=== PATIENT | female | born 1955 | race Two or more races ===

== ENCOUNTER 2018-02-23 10:57 | Inpatient (IN) | payer OTHER ==
[2018-02-23] MEDS: HYDROmorphONE 1 MG/ML SYG IV (12:49)
[2018-02-23] MEDS: ONDANSETRON 4 MG INJ IV (12:49)
[2018-02-23] MEDS: SOD CHLORIDE 0.9% 1,000 ML IV (12:49)
[2018-02-23 12:58] LABS: ADD MAN DIFF? NO
[2018-02-23 13:01] LABS: BASOPHIL # 0.1 10^3/ul (0.0-0.1); BASOPHILS % 0.7 % (0.0-2.0); EOSINOPHILS # 0.7 10^3/ul (0.0-0.5); EOSINOPHILS % 7.7 % (0.0-7.0); HEMATOCRIT 40.1 % (37.0-47.0); HEMOGLOBIN 12.3 g/dl (12.0-16.0); LYMPHOCYTES # 2.3 10^3/ul (0.8-2.9); LYMPHOCYTES % 25.4 % (15.0-51.0); MEAN CORPUSCULAR HEMOGLOBIN 24.9 pg (29.0-33.0); MEAN CORPUSCULAR HGB CONC 30.7 g/dl (32.0-37.0); MEAN CORPUSCULAR VOLUME 81.3 fl (82.0-101.0); MEAN PLATELET VOLUME 9.5 fl (7.4-10.4); MONOCYTE # 0.7 10^3/ul (0.3-0.9); MONOCYTES % 7.9 % (0.0-11.0); NEUTROPHIL # 5.2 10^3/ul (1.6-7.5); PLATELET COUNT 384 10^3/UL (140-415); RED BLOOD COUNT 4.93 10^6/ul (4.20-5.40); RED CELL DISTRIBUTION WIDTH 13.9 % (11.5-14.5)
[2018-02-23 13:01] LABS: WHITE BLOOD COUNT 8.9 10^3/ul (4.8-10.8)
[2018-02-23 13:41] LABS: INR 0.97
[2018-02-23 13:42] LABS: PARTIAL THROMBOPLASTIN TIME 35.1 Sec (23.0-35.0)
[2018-02-23 13:44] LABS: ALANINE AMINOTRANSFERASE 14 IU/L (13-69); ALBUMIN 3.4 g/dl (3.3-4.9); ALBUMIN/GLOBULIN RATIO 0.89; ALKALINE PHOSPHATASE 94 IU/L (42-121); AMYLASE 52 U/L (11-123); ANION GAP 5 (5-13); ASPARTATE AMINO TRANSFERASE 29 IU/L (15-46); BILIRUBIN,INDIRECT 0.4 mg/dl (0-1.1); BILIRUBIN,TOTAL 0.4 mg/dl (0.2-1.3); BLOOD UREA NITROGEN 8 mg/dl (7-20); CALCIUM 9.1 mg/dl (8.4-10.2); CARBON DIOXIDE 29 mmol/L (21-31); CHLORIDE 103 mmol/L (97-110); CREATININE 0.49 mg/dl (0.44-1.00); Estimated GFR > 60 mL/min (>60); GLUCOSE 122 mg/dl (70-220); LIPASE 34 U/L (23-300); POTASSIUM 4.8 mmol/L (3.5-5.1); SODIUM 137 mmol/L (135-144); TOTAL PROTEIN 7.2 g/dl (6.1-8.1)
[2018-02-23 13:55] LABS: TROPONIN-I < 0.012 ng/ml (0.000-0.120)
[2018-02-23] MEDS ORDERED: ACETAMINOPHEN 325 MG TAB PO (15:30)
[2018-02-23] MEDS ORDERED: ONDANSETRON 4 MG INJ IV (15:30)
[2018-02-23] MEDS ORDERED: MAGNESIUM HYDROXIDE 30ML CUP PO (18:00)
[2018-02-23] MEDS ORDERED: NACL 0.9% 3 ML SYG IV (18:00)
[2018-02-23] MEDS ORDERED: BISACODYL (EC) 5 MG TAB PO (18:00)
[2018-02-23] MEDS ORDERED: DOCUSATE SODIUM 100 MG CAP PO (18:00)
[2018-02-23] MEDS: INSULIN ASPART [NOVOLOG] 3 ML PEN SC ×2 (18:00→20:47)
[2018-02-23] MEDS ORDERED: ACETAMINOPHEN 650 MG SUPP PR (18:00)
[2018-02-23] MEDS ORDERED: GLUCOSE GEL 15 GRAM TUBE PO ×2 (18:30)
[2018-02-23] MEDS ORDERED: GLUCOSE GEL 15 GRAM TUBE BUCCAL (18:30)
[2018-02-23] MEDS ORDERED: GLUCAGON 1 MG INJ IM (18:30)
[2018-02-23] MEDS ORDERED: DEXTROSE 50% 50 ML SYRINGE IV ×2 (18:30)
[2018-02-23] MEDS: HYDROCODONE/APAP (5/325) TAB PO (19:43)
[2018-02-23] MEDS: ZOLPIDEM 5 MG TAB PO (23:25)
[2018-02-23] MEDS: ACETAMINOPHEN 325 MG TAB PO (23:25)
[2018-02-24 00:12] LABS: CARCINOEMBRYONIC ANTIGEN 0.4 ng/ml (0.0-5.0)
[2018-02-24 00:12] LABS: CANCER ANTIGEN 125 < 5.5 U/ml (0.0-35.0)
[2018-02-24] MEDS: ACCU-CHEK XX (02:00)
[2018-02-24 02:02] LABS: CANCER ANTIGEN 19-9 < 1.4 U/ml (0.0-37.0)
[2018-02-24] MEDS: PANTOPRAZOLE 40 MG INJ IV (06:20)
[2018-02-24] MEDS: HYDROCODONE/APAP (5/325) TAB PO ×4 (06:26→21:43)
[2018-02-24] MEDS: INSULIN ASPART [NOVOLOG] 3 ML PEN SC ×4 (08:00→20:51)
[2018-02-24 08:06] LABS: HEMOGLOBIN A1C 7.1 % (0-5.9)
[2018-02-25] MEDS: ACCU-CHEK XX (01:38)
[2018-02-25] MEDS: PANTOPRAZOLE 40 MG INJ IV (05:54)
[2018-02-25] MEDS: HYDROCODONE/APAP (5/325) TAB PO ×4 (05:57→19:13)
[2018-02-25] MEDS: INSULIN ASPART [NOVOLOG] 3 ML PEN SC ×5 (08:06→20:28)
[2018-02-26] MEDS: ACCU-CHEK XX (01:27)
[2018-02-26] MEDS: PANTOPRAZOLE 40 MG INJ IV (05:51)
[2018-02-26] MEDS: HYDROCODONE/APAP (5/325) TAB PO (05:53)
[2018-02-26 07:00] LABS: ADD MAN DIFF? NO
[2018-02-26 07:06] LABS: BASOPHIL # 0.1 10^3/ul (0.0-0.1); BASOPHILS % 0.7 % (0.0-2.0); EOSINOPHILS # 0.5 10^3/ul (0.0-0.5); EOSINOPHILS % 6.3 % (0.0-7.0); HEMATOCRIT 36.4 % (37.0-47.0); HEMOGLOBIN 11.4 g/dl (12.0-16.0); LYMPHOCYTES # 1.8 10^3/ul (0.8-2.9); MEAN CORPUSCULAR HEMOGLOBIN 24.9 pg (29.0-33.0); MEAN CORPUSCULAR HGB CONC 31.3 g/dl (32.0-37.0); MEAN CORPUSCULAR VOLUME 79.5 fl (82.0-101.0); MONOCYTE # 0.6 10^3/ul (0.3-0.9); MONOCYTES % 7.8 % (0.0-11.0); NEUTROPHIL # 4.7 10^3/ul (1.6-7.5); NEUTROPHILS % 61.9 % (39.0-77.0); PLATELET COUNT 348 10^3/UL (140-415); RED BLOOD COUNT 4.58 10^6/ul (4.20-5.40); RED CELL DISTRIBUTION WIDTH 14.1 % (11.5-14.5)
[2018-02-26 07:06] LABS: WHITE BLOOD COUNT 7.7 10^3/ul (4.8-10.8)
[2018-02-26 07:25] LABS: INR 1.01; PROTIME 13.4 Sec (11.9-14.9)
[2018-02-26 07:28] LABS: ALANINE AMINOTRANSFERASE < 6 IU/L (13-69); ALBUMIN 3.5 g/dl (3.3-4.9); ALBUMIN/GLOBULIN RATIO 1.02; ALKALINE PHOSPHATASE 123 IU/L (42-121); ANION GAP 9 (5-13); ASPARTATE AMINO TRANSFERASE 18 IU/L (15-46); BILIRUBIN,INDIRECT 0.4 mg/dl (0-1.1); BILIRUBIN,TOTAL 0.4 mg/dl (0.2-1.3); BLOOD UREA NITROGEN 10 mg/dl (7-20); CALCIUM 9.2 mg/dl (8.4-10.2); CARBON DIOXIDE 31 mmol/L (21-31); CHLORIDE 98 mmol/L (97-110); Estimated GFR > 60 mL/min (>60); GLUCOSE 187 mg/dl (70-220); POTASSIUM 4.4 mmol/L (3.5-5.1); SODIUM 138 mmol/L (135-144); TOTAL PROTEIN 6.9 g/dl (6.1-8.1)
[2018-02-26] MEDS: INSULIN ASPART [NOVOLOG] 3 ML PEN SC ×4 (07:45→20:40)
[2018-02-26] MEDS: LACTATED RINGER'S 1,000 ML IV (11:45)
[2018-02-26] MEDS: morphine 2 MG INJ IV ×2 (12:03→21:08)
[2018-02-26] MEDS ORDERED: LIDOCAINE 1% (MPF) 5 ML VIAL (14:48)
[2018-02-26] MEDS ORDERED: FENTAnyl 50 MCG/ML VIAL (15:54)
[2018-02-27] MEDS: ACCU-CHEK XX (02:00)
[2018-02-27] MEDS: LACTATED RINGER'S 1,000 ML IV (04:10)
[2018-02-27] MEDS: PANTOPRAZOLE 40 MG INJ IV (06:02)
[2018-02-27 07:32] LABS: ADD MAN DIFF? NO
[2018-02-27 07:38] LABS: BASOPHIL # 0.1 10^3/ul (0.0-0.1); BASOPHILS % 0.9 % (0.0-2.0); EOSINOPHILS # 0.4 10^3/ul (0.0-0.5); EOSINOPHILS % 6.3 % (0.0-7.0); HEMATOCRIT 36.1 % (37.0-47.0); HEMOGLOBIN 11.3 g/dl (12.0-16.0); LYMPHOCYTES # 1.4 10^3/ul (0.8-2.9); LYMPHOCYTES % 20.8 % (15.0-51.0); MEAN CORPUSCULAR HEMOGLOBIN 24.9 pg (29.0-33.0); MEAN CORPUSCULAR HGB CONC 31.3 g/dl (32.0-37.0); MEAN CORPUSCULAR VOLUME 79.7 fl (82.0-101.0); MEAN PLATELET VOLUME 9.6 fl (7.4-10.4); MONOCYTE # 0.5 10^3/ul (0.3-0.9); MONOCYTES % 6.6 % (0.0-11.0); NEUTROPHIL # 4.4 10^3/ul (1.6-7.5); NEUTROPHILS % 64.8 % (39.0-77.0); PLATELET COUNT 368 10^3/UL (140-415); RED BLOOD COUNT 4.53 10^6/ul (4.20-5.40); RED CELL DISTRIBUTION WIDTH 14.1 % (11.5-14.5)
[2018-02-27 07:38] LABS: WHITE BLOOD COUNT 6.8 10^3/ul (4.8-10.8)
[2018-02-27] MEDS: INSULIN ASPART [NOVOLOG] 3 ML PEN SC ×4 (09:00→20:22)
[2018-02-27] MEDS: HYDROmorphONE 1 MG/ML SYG IV (17:45)
[2018-02-28] MEDS: ACCU-CHEK XX (01:16)
[2018-02-28] MEDS: PANTOPRAZOLE 40 MG INJ IV (05:37)
[2018-02-28] MEDS: HYDROmorphONE 1 MG/ML SYG IV ×2 (08:03→12:51)
[2018-02-28] MEDS: INSULIN ASPART [NOVOLOG] 3 ML PEN SC ×4 (08:05→20:29)
[2018-02-28] MEDS: SOD CHLORIDE 0.9% 100 ML (09:20)
[2018-02-28] MEDS: IODIXANOL LOCM 100 ML BTL (09:20)
[2018-02-28] MEDS: ONDANSETRON 4 MG INJ IV (09:40)
[2018-02-28] MEDS: HYDROCODONE/APAP (5/325) TAB PO (10:49)
[2018-02-28] MEDS ORDERED: HYDROCODONE/APAP (10/325) TAB PO (14:30)
[2018-02-28] MEDS ORDERED: traMADol 50 MG TAB PO (14:30)
[2018-02-28] MEDS: morphine (ER) 15 MG TAB PO ×2 (16:54→20:20)
[2018-03-01] MEDS: ACCU-CHEK XX (02:53)
[2018-03-01] MEDS: PANTOPRAZOLE 40 MG INJ IV (05:44)
[2018-03-01 07:19] LABS: ADD MAN DIFF? NO
[2018-03-01 07:25] LABS: WHITE BLOOD COUNT 6.9 10^3/ul (4.8-10.8)
[2018-03-01 07:25] LABS: BASOPHIL # 0.1 10^3/ul (0.0-0.1); BASOPHILS % 0.7 % (0.0-2.0); EOSINOPHILS # 0.7 10^3/ul (0.0-0.5); EOSINOPHILS % 10.5 % (0.0-7.0); HEMATOCRIT 36.2 % (37.0-47.0); HEMOGLOBIN 11.2 g/dl (12.0-16.0); LYMPHOCYTES % 29.7 % (15.0-51.0); MEAN CORPUSCULAR HEMOGLOBIN 24.9 pg (29.0-33.0); MEAN CORPUSCULAR HGB CONC 30.9 g/dl (32.0-37.0); MEAN CORPUSCULAR VOLUME 80.6 fl (82.0-101.0); MEAN PLATELET VOLUME 9.2 fl (7.4-10.4); MONOCYTE # 0.6 10^3/ul (0.3-0.9); MONOCYTES % 9.2 % (0.0-11.0); NEUTROPHIL # 3.4 10^3/ul (1.6-7.5); NEUTROPHILS % 49.8 % (39.0-77.0); PLATELET COUNT 384 10^3/UL (140-415); RED BLOOD COUNT 4.49 10^6/ul (4.20-5.40); RED CELL DISTRIBUTION WIDTH 13.9 % (11.5-14.5)
[2018-03-01 07:46] LABS: PHOSPHORUS 4.7 mg/dl (2.5-4.9)
[2018-03-01 07:46] LABS: ANION GAP 9 (5-13); BLOOD UREA NITROGEN 8 mg/dl (7-20); CALCIUM 9.6 mg/dl (8.4-10.2); CARBON DIOXIDE 33 mmol/L (21-31); CHLORIDE 97 mmol/L (97-110); CREATININE 0.57 mg/dl (0.44-1.00); Estimated GFR > 60 mL/min (>60); GLUCOSE 184 mg/dl (70-220); MAGNESIUM 1.7 mg/dl (1.7-2.5); POTASSIUM 4.9 mmol/L (3.5-5.1); SODIUM 139 mmol/L (135-144)
[2018-03-01] MEDS: morphine (ER) 15 MG TAB PO (08:13)
[2018-03-01] MEDS: INSULIN ASPART [NOVOLOG] 3 ML PEN SC ×2 (08:14→13:15)
[2018-03-01] MEDS: HYDROCODONE/APAP (10/325) TAB PO ×2 (09:02→15:56)
== END 2018-03-01 16:24 | disposition home or self-care (01) | DRG 845 ==
LOC: FTE 10:57 → 2NE 15:08
PROVIDERS: Internal Medicine Nephrology
PROC: 0WBH3ZX Excision of Retroperitoneum, Percutaneous Approach, Diagnostic (ICD-10-PCS; principal; 2018-02-26)
DX: C48.0 Malignant neoplasm of retroperitoneum (principal); Z90.49 Acquired absence of other specified parts of digestive tract; Z90.710 Acquired absence of both cervix and uterus; I10 Essential (primary) hypertension; E11.9 Type 2 diabetes mellitus without complications; E78.00 Pure hypercholesterolemia, unspecified; R91.8 Other nonspecific abnormal finding of lung field; Z87.891 Personal history of nicotine dependence
CPT/HCPCS: 36415; 71250; 74177; 77012; 80048; 80053; 82150; 82378; 82962; 83036; 83690; 83735; 84100; 84484; 85025; 85610; 85730; 86301; 86304; 88307; 88313; 88341; 88342; 93005; 96361; 96374; 96375; 99285-25; G0378

== ENCOUNTER 2018-03-08 17:22 | Inpatient (IN) | payer OTHER ==
[2018-03-08 19:22] LABS: ADD MAN DIFF? NO
[2018-03-08 19:25] LABS: WHITE BLOOD COUNT 11.2 10^3/ul (4.8-10.8)
[2018-03-08 19:25] LABS: BASOPHIL # 0.1 10^3/ul (0.0-0.1); BASOPHILS % 0.7 % (0.0-2.0); EOSINOPHILS # 0.7 10^3/ul (0.0-0.5); EOSINOPHILS % 6.1 % (0.0-7.0); HEMATOCRIT 39.3 % (37.0-47.0); HEMOGLOBIN 12.2 g/dl (12.0-16.0); LYMPHOCYTES # 2.7 10^3/ul (0.8-2.9); MEAN CORPUSCULAR HEMOGLOBIN 24.7 pg (29.0-33.0); MEAN CORPUSCULAR VOLUME 79.6 fl (82.0-101.0); MEAN PLATELET VOLUME 9.3 fl (7.4-10.4); MONOCYTE # 0.8 10^3/ul (0.3-0.9); NEUTROPHIL # 6.9 10^3/ul (1.6-7.5); NEUTROPHILS % 61.9 % (39.0-77.0); PLATELET COUNT 523 10^3/UL (140-415); RED BLOOD COUNT 4.94 10^6/ul (4.20-5.40); RED CELL DISTRIBUTION WIDTH 13.9 % (11.5-14.5)
[2018-03-08] MEDS: ACETAMINOPHEN 325 MG TAB PO (19:30)
[2018-03-08] MEDS: SOD CHLORIDE 0.9% 500 ML IV (19:30)
[2018-03-08] MEDS: ONDANSETRON 4 MG INJ IV (19:30)
[2018-03-08] MEDS: morphine 4 MG/ML VIAL IV (19:33)
[2018-03-08 19:40] LABS: INR 0.85; PROTIME 11.7 Sec (11.9-14.9); PT RATIO 0.9
[2018-03-08 19:42] LABS: ALANINE AMINOTRANSFERASE 10 IU/L (13-69); ALBUMIN/GLOBULIN RATIO 1.14; ALKALINE PHOSPHATASE 124 IU/L (42-121); ANION GAP 11 (5-13); ASPARTATE AMINO TRANSFERASE 21 IU/L (15-46); BILIRUBIN,INDIRECT 0.2 mg/dl (0-1.1); BILIRUBIN,TOTAL 0.2 mg/dl (0.2-1.3); BLOOD UREA NITROGEN 12 mg/dl (7-20); CALCIUM 10.3 mg/dl (8.4-10.2); CARBON DIOXIDE 31 mmol/L (21-31); CHLORIDE 95 mmol/L (97-110); CREATININE 0.56 mg/dl (0.44-1.00); Estimated GFR > 60 mL/min (>60); GLUCOSE 208 mg/dl (70-220); LIPASE 35 U/L (23-300); POTASSIUM 4.5 mmol/L (3.5-5.1); SODIUM 137 mmol/L (135-144); TOTAL PROTEIN 7.5 g/dl (6.1-8.1)
[2018-03-08 19:52] LABS: ADD UMIC YES; UR ASCORBIC ACID NEGATIVE (NEGATIVE); UR BILIRUBIN (Dip) 1+ mg/dL (NEGATIVE); UR BLOOD (Dip) 1+ mg/dL (NEGATIVE); UR CALCIUM OXALATE CRYSTAL MANY /HPF (NONE SEEN); UR CLARITY CLOUDY (CLEAR); UR COLOR AMBER (YELLOW); UR GLUCOSE (Dip) NEGATIVE (NEGATIVE); UR KETONES (Dip) TRACE mg/dL (NEGATIVE); UR LEUKOCYTE ESTERASE (Dip) 2+ Leu/ul (NEGATIVE); UR MUCUS MANY /HPF (NONE SEEN); UR NITRITE (Dip) NEGATIVE (NEGATIVE); UR RBC 7 /HPF (0-5); UR SPECIFIC GRAVITY (Dip) 1.027 (1.003-1.030); UR SQUAMOUS EPITHELIAL CELL FEW /HPF (FEW); UR TOTAL PROTEIN (Dip) 1+ mg/dl (NEGATIVE); UR UROBILINOGEN (Dip) 1+ mg/dL (NEGATIVE); UR WBC 19 /HPF (0-5)
[2018-03-08] MEDS ORDERED: ACETAMINOPHEN 325 MG TAB PO (20:30)
[2018-03-08] MEDS ORDERED: ONDANSETRON 4 MG INJ IV (20:30)
[2018-03-08] MEDS: CEFTRIAXONE 1 GM/50 ML (PMX) 50 ML IVPB (23:55)
[2018-03-09] MEDS: OXYCODONE/ACETAMINOPHEN (10/325) TAB PO ×5 (01:07→23:09)
[2018-03-09] MEDS: LEVOFLOXACIN 500MG/D5W (PMX) 100 ML IVPB (01:07)
[2018-03-09] MEDS: DEXTROSE 5%-0.9% NACL 1,000 ML IV (01:09)
[2018-03-09] MEDS: PANTOPRAZOLE 40 MG INJ IV (05:36)
[2018-03-09] MEDS: INSULIN ASPART [NOVOLOG] 3 ML PEN SC ×4 (10:00→20:49)
[2018-03-09] MEDS ORDERED: GLUCAGON 1 MG INJ IM (10:00)
[2018-03-09] MEDS ORDERED: GLUCOSE GEL 15 GRAM TUBE BUCCAL (10:00)
[2018-03-09] MEDS ORDERED: DEXTROSE 50% 50 ML SYRINGE IV ×2 (10:00)
[2018-03-09] MEDS ORDERED: GLUCOSE GEL 15 GRAM TUBE PO ×2 (10:00)
[2018-03-09] MEDS ORDERED: DIPHENHYDRAMINE 50 MG INJ IV (10:30)
[2018-03-09] MEDS ORDERED: INSULIN ASPART [NOVOLOG] 3 ML PEN SC (13:00)
[2018-03-09] MEDS: DOCUSATE SODIUM 100 MG CAP PO (13:23)
[2018-03-09] MEDS: LOSARTAN 50 MG TAB PO (15:05)
[2018-03-09] MEDS: ASPIRIN (EC) 81 MG TAB PO (20:45)
[2018-03-09] MEDS: METOPROLOL (XL) 25 MG TAB PO (20:46)
[2018-03-09] MEDS: EZETIMIBE 10 MG TAB PO (20:46)
[2018-03-10] MEDS: LEVOFLOXACIN 500MG/D5W (PMX) 100 ML IVPB (00:26)
[2018-03-10] MEDS: PANTOPRAZOLE 40 MG INJ IV (05:29)
[2018-03-10] MEDS: INSULIN ASPART [NOVOLOG] 3 ML PEN SC ×4 (07:00→20:50)
[2018-03-10 07:31] LABS: ADD MAN DIFF? NO
[2018-03-10 07:35] LABS: BASOPHIL # 0.1 10^3/ul (0.0-0.1); BASOPHILS % 0.6 % (0.0-2.0); EOSINOPHILS # 0.3 10^3/ul (0.0-0.5); EOSINOPHILS % 3.9 % (0.0-7.0); HEMATOCRIT 36.5 % (37.0-47.0); HEMOGLOBIN 11.5 g/dl (12.0-16.0); LYMPHOCYTES # 1.5 10^3/ul (0.8-2.9); LYMPHOCYTES % 18.8 % (15.0-51.0); MEAN CORPUSCULAR HEMOGLOBIN 24.8 pg (29.0-33.0); MEAN CORPUSCULAR HGB CONC 31.5 g/dl (32.0-37.0); MEAN CORPUSCULAR VOLUME 78.8 fl (82.0-101.0); MEAN PLATELET VOLUME 9.3 fl (7.4-10.4); MONOCYTE # 0.5 10^3/ul (0.3-0.9); MONOCYTES % 6.4 % (0.0-11.0); NEUTROPHIL # 5.5 10^3/ul (1.6-7.5); PLATELET COUNT 427 10^3/UL (140-415); RED BLOOD COUNT 4.63 10^6/ul (4.20-5.40); RED CELL DISTRIBUTION WIDTH 13.9 % (11.5-14.5)
[2018-03-10 07:35] LABS: WHITE BLOOD COUNT 7.9 10^3/ul (4.8-10.8)
[2018-03-10 07:54] LABS: ANION GAP 9 (5-13); BLOOD UREA NITROGEN 9 mg/dl (7-20); CARBON DIOXIDE 32 mmol/L (21-31); CHLORIDE 97 mmol/L (97-110); Estimated GFR > 60 mL/min (>60); GLUCOSE 153 mg/dl (70-220); POTASSIUM 4.3 mmol/L (3.5-5.1); SODIUM 138 mmol/L (135-144)
[2018-03-10] MEDS: DOCUSATE SODIUM 100 MG CAP PO (08:27)
[2018-03-10] MEDS: LOSARTAN 50 MG TAB PO (08:27)
[2018-03-10] MEDS: ENOXAPARIN 40 MG/0.4 ML SYG SC (08:30)
[2018-03-10] MEDS: OXYCODONE/ACETAMINOPHEN (10/325) TAB PO ×3 (11:55→21:05)
[2018-03-10] MEDS: EZETIMIBE 10 MG TAB PO (21:05)
[2018-03-10] MEDS: MINERAL OIL 30ML CUP PO (21:05)
[2018-03-10] MEDS: METOPROLOL (XL) 25 MG TAB PO (21:05)
[2018-03-10] MEDS: ASPIRIN (EC) 81 MG TAB PO (21:05)
[2018-03-11] MEDS: LEVOFLOXACIN 500MG/D5W (PMX) 100 ML IVPB (01:11)
[2018-03-11] MEDS: OXYCODONE/ACETAMINOPHEN (10/325) TAB PO ×3 (05:25→20:25)
[2018-03-11] MEDS: PANTOPRAZOLE 40 MG INJ IV (05:25)
[2018-03-11] MEDS: DOCUSATE SODIUM 100 MG CAP PO (08:13)
[2018-03-11] MEDS: MINERAL OIL 30ML CUP PO ×3 (08:13→21:54)
[2018-03-11] MEDS: LOSARTAN 50 MG TAB PO (08:13)
[2018-03-11] MEDS: ENOXAPARIN 40 MG/0.4 ML SYG SC (08:17)
[2018-03-11] MEDS: INSULIN ASPART [NOVOLOG] 3 ML PEN SC ×4 (08:17→20:28)
[2018-03-11] MEDS ORDERED: MAGNESIUM HYDROXIDE 30ML CUP PO (13:30)
[2018-03-11] MEDS: METOPROLOL (XL) 25 MG TAB PO (20:24)
[2018-03-11] MEDS: EZETIMIBE 10 MG TAB PO (20:25)
[2018-03-11] MEDS: ASPIRIN (EC) 81 MG TAB PO (20:25)
[2018-03-11] MEDS: ACETAMINOPHEN 325 MG TAB PO (20:25)
[2018-03-11] MEDS: LUBIPROSTONE 8 MCG CAPSULE PO (21:53)
[2018-03-12] MEDS: LEVOFLOXACIN 500MG/D5W (PMX) 100 ML IVPB (00:49)
[2018-03-12] MEDS: OXYCODONE/ACETAMINOPHEN (10/325) TAB PO ×4 (00:49→19:28)
[2018-03-12] MEDS: PANTOPRAZOLE 40 MG INJ IV (05:55)
[2018-03-12] MEDS: INSULIN ASPART [NOVOLOG] 3 ML PEN SC ×4 (08:49→21:27)
[2018-03-12] MEDS: ENOXAPARIN 40 MG/0.4 ML SYG SC (08:50)
[2018-03-12] MEDS: LUBIPROSTONE 8 MCG CAPSULE PO ×2 (08:51→21:11)
[2018-03-12] MEDS: DOCUSATE SODIUM 100 MG CAP PO (08:51)
[2018-03-12] MEDS: MINERAL OIL 30ML CUP PO (08:52)
[2018-03-12] MEDS: LOSARTAN 50 MG TAB PO (08:52)
[2018-03-12 19:29] LABS: TROPONIN-I < 0.012 ng/ml (0.000-0.120)
[2018-03-12] MEDS: BISACODYL (EC) 5 MG TAB PO (21:12)
[2018-03-12] MEDS: EZETIMIBE 10 MG TAB PO (21:12)
[2018-03-12] MEDS: ASPIRIN (EC) 81 MG TAB PO (21:12)
[2018-03-12] MEDS: MAGNESIUM HYDROXIDE 30ML CUP PO (21:12)
[2018-03-12] MEDS: METOPROLOL (XL) 25 MG TAB PO (21:19)
[2018-03-13] MEDS: LEVOFLOXACIN 500MG/D5W (PMX) 100 ML IVPB (00:47)
[2018-03-13 01:50] LABS: TROPONIN-I < 0.012 ng/ml (0.000-0.120)
[2018-03-13] MEDS: PANTOPRAZOLE 40 MG INJ IV (05:09)
[2018-03-13 05:57] LABS: ADD MAN DIFF? NO; BASOPHIL # 0.1 10^3/ul (0.0-0.1); BASOPHILS % 0.9 % (0.0-2.0); EOSINOPHILS # 0.5 10^3/ul (0.0-0.5); EOSINOPHILS % 6.7 % (0.0-7.0); HEMATOCRIT 34.3 % (37.0-47.0); HEMOGLOBIN 10.9 g/dl (12.0-16.0); LYMPHOCYTES # 1.9 10^3/ul (0.8-2.9); LYMPHOCYTES % 23.4 % (15.0-51.0); MEAN CORPUSCULAR HEMOGLOBIN 24.8 pg (29.0-33.0); MEAN CORPUSCULAR HGB CONC 31.8 g/dl (32.0-37.0); MEAN CORPUSCULAR VOLUME 78.1 fl (82.0-101.0); MEAN PLATELET VOLUME 9.8 fl (7.4-10.4); MONOCYTE # 0.7 10^3/ul (0.3-0.9); MONOCYTES % 8.6 % (0.0-11.0); NEUTROPHIL # 4.7 10^3/ul (1.6-7.5); NEUTROPHILS % 60.1 % (39.0-77.0); PLATELET COUNT 417 10^3/UL (140-415); RED BLOOD COUNT 4.39 10^6/ul (4.20-5.40); RED CELL DISTRIBUTION WIDTH 14.4 % (11.5-14.5)
[2018-03-13 05:57] LABS: WHITE BLOOD COUNT 7.9 10^3/ul (4.8-10.8)
[2018-03-13 06:32] LABS: ANION GAP 8 (5-13); BLOOD UREA NITROGEN 9 mg/dl (7-20); CALCIUM 9.2 mg/dl (8.4-10.2); CARBON DIOXIDE 30 mmol/L (21-31); CHLORIDE 100 mmol/L (97-110); CREATININE 0.47 mg/dl (0.44-1.00); Estimated GFR > 60 mL/min (>60); GLUCOSE 187 mg/dl (70-220); POTASSIUM 4.9 mmol/L (3.5-5.1); SODIUM 138 mmol/L (135-144)
[2018-03-13] MEDS: DOCUSATE SODIUM 100 MG CAP PO (08:10)
[2018-03-13] MEDS: MAGNESIUM HYDROXIDE 30ML CUP PO ×3 (08:10→21:16)
[2018-03-13] MEDS: BISACODYL (EC) 5 MG TAB PO ×3 (08:10→21:16)
[2018-03-13] MEDS: LOSARTAN 50 MG TAB PO (08:10)
[2018-03-13] MEDS: LUBIPROSTONE 8 MCG CAPSULE PO ×2 (08:11→21:16)
[2018-03-13] MEDS: INSULIN ASPART [NOVOLOG] 3 ML PEN SC ×4 (08:13→21:22)
[2018-03-13] MEDS: ENOXAPARIN 40 MG/0.4 ML SYG SC (08:14)
[2018-03-13] MEDS: MAGNESIUM CITRATE 300 ML BTL PO ×2 (10:00→17:21)
[2018-03-13 12:18] LABS: ADD UMIC YES; UR ASCORBIC ACID NEGATIVE (NEGATIVE); UR BILIRUBIN (Dip) NEGATIVE (NEGATIVE); UR BLOOD (Dip) 1+ mg/dL (NEGATIVE); UR CLARITY CLEAR (CLEAR); UR COLOR STRAW (YELLOW); UR GLUCOSE (Dip) NEGATIVE (NEGATIVE); UR KETONES (Dip) NEGATIVE (NEGATIVE); UR LEUKOCYTE ESTERASE (Dip) NEGATIVE Leu/ul (NEGATIVE); UR NITRITE (Dip) NEGATIVE (NEGATIVE); UR RBC 1 /HPF (0-5); UR SPECIFIC GRAVITY (Dip) 1.006 (1.003-1.030); UR TOTAL PROTEIN (Dip) NEGATIVE (NEGATIVE); UR UROBILINOGEN (Dip) NEGATIVE (NEGATIVE); UR WBC 1 /HPF (0-5)
[2018-03-13] MEDS: HYDROmorphONE 1 MG/ML SYG IV (15:23)
[2018-03-13] MEDS: OXYCODONE/ACETAMINOPHEN (10/325) TAB PO (16:18)
[2018-03-13] MEDS: ASPIRIN (EC) 81 MG TAB PO (21:16)
[2018-03-13] MEDS: EZETIMIBE 10 MG TAB PO (21:16)
[2018-03-13] MEDS: METOPROLOL (XL) 25 MG TAB PO (21:18)
[2018-03-14] MEDS: LEVOFLOXACIN 500MG/D5W (PMX) 100 ML IVPB (01:17)
[2018-03-14] MEDS: PANTOPRAZOLE 40 MG INJ IV (05:32)
[2018-03-14] MEDS: OXYCODONE/ACETAMINOPHEN (10/325) TAB PO ×2 (05:41→14:15)
[2018-03-14 05:55] LABS: ADD MAN DIFF? NO
[2018-03-14 06:01] LABS: BASOPHILS % 0.5 % (0.0-2.0); EOSINOPHILS # 0.2 10^3/ul (0.0-0.5); EOSINOPHILS % 2.8 % (0.0-7.0); HEMATOCRIT 34.4 % (37.0-47.0); HEMOGLOBIN 10.8 g/dl (12.0-16.0); LYMPHOCYTES # 1.6 10^3/ul (0.8-2.9); LYMPHOCYTES % 18.9 % (15.0-51.0); MEAN CORPUSCULAR HEMOGLOBIN 24.7 pg (29.0-33.0); MEAN CORPUSCULAR HGB CONC 31.4 g/dl (32.0-37.0); MEAN CORPUSCULAR VOLUME 78.5 fl (82.0-101.0); MEAN PLATELET VOLUME 9.5 fl (7.4-10.4); MONOCYTE # 0.8 10^3/ul (0.3-0.9); MONOCYTES % 9.8 % (0.0-11.0); NEUTROPHIL # 5.6 10^3/ul (1.6-7.5); NEUTROPHILS % 67.8 % (39.0-77.0); PLATELET COUNT 421 10^3/UL (140-415); RED BLOOD COUNT 4.38 10^6/ul (4.20-5.40); RED CELL DISTRIBUTION WIDTH 14.3 % (11.5-14.5)
[2018-03-14 06:01] LABS: WHITE BLOOD COUNT 8.2 10^3/ul (4.8-10.8)
[2018-03-14] MEDS: MAGNESIUM HYDROXIDE 30ML CUP PO ×2 (08:11→12:49)
[2018-03-14] MEDS: LUBIPROSTONE 8 MCG CAPSULE PO ×2 (08:11→20:38)
[2018-03-14] MEDS: DOCUSATE SODIUM 100 MG CAP PO (08:12)
[2018-03-14] MEDS: BISACODYL (EC) 5 MG TAB PO ×3 (08:12→20:38)
[2018-03-14] MEDS: LOSARTAN 50 MG TAB PO (08:12)
[2018-03-14] MEDS: INSULIN ASPART [NOVOLOG] 3 ML PEN SC ×4 (08:14→20:41)
[2018-03-14] MEDS: ENOXAPARIN 40 MG/0.4 ML SYG SC (10:20)
[2018-03-14] MEDS: D5W-0.45 NACL + KCL 20 MEQ 1,000 ML IV (14:01)
[2018-03-14] MEDS ORDERED: MAGNESIUM CITRATE 300 ML BTL PO (14:30)
[2018-03-14 17:18] LABS: COLLAGEN/ADP 154 Secs. (40-147)
[2018-03-14 17:28] LABS: COLLAGEN/EPI 223 Secs. (51-198)
[2018-03-14] MEDS: EZETIMIBE 10 MG TAB PO (20:38)
[2018-03-14] MEDS: METOPROLOL (XL) 25 MG TAB PO (20:38)
[2018-03-15] MEDS: LEVOFLOXACIN 500MG/D5W (PMX) 100 ML IVPB (01:36)
[2018-03-15] MEDS: D5W-0.45 NACL + KCL 20 MEQ 1,000 ML IV (03:08)
[2018-03-15] MEDS: PANTOPRAZOLE 40 MG INJ IV (05:51)
[2018-03-15 05:55] LABS: ADD MAN DIFF? NO
[2018-03-15 06:21] LABS: WHITE BLOOD COUNT 7.4 10^3/ul (4.8-10.8)
[2018-03-15 06:21] LABS: BASOPHIL # 0.1 10^3/ul (0.0-0.1); BASOPHILS % 0.7 % (0.0-2.0); EOSINOPHILS # 0.2 10^3/ul (0.0-0.5); HEMATOCRIT 34.4 % (37.0-47.0); HEMOGLOBIN 10.7 g/dl (12.0-16.0); LYMPHOCYTES # 1.3 10^3/ul (0.8-2.9); LYMPHOCYTES % 17.2 % (15.0-51.0); MEAN CORPUSCULAR HEMOGLOBIN 24.4 pg (29.0-33.0); MEAN CORPUSCULAR HGB CONC 31.1 g/dl (32.0-37.0); MEAN CORPUSCULAR VOLUME 78.5 fl (82.0-101.0); MEAN PLATELET VOLUME 9.4 fl (7.4-10.4); MONOCYTE # 0.6 10^3/ul (0.3-0.9); MONOCYTES % 8.6 % (0.0-11.0); NEUTROPHIL # 5.2 10^3/ul (1.6-7.5); NEUTROPHILS % 70.2 % (39.0-77.0); PLATELET COUNT 416 10^3/UL (140-415); RED BLOOD COUNT 4.38 10^6/ul (4.20-5.40); RED CELL DISTRIBUTION WIDTH 14.3 % (11.5-14.5)
[2018-03-15] MEDS: INSULIN ASPART [NOVOLOG] 3 ML PEN SC ×4 (06:39→20:33)
[2018-03-15 06:40] LABS: ALANINE AMINOTRANSFERASE 10 IU/L (13-69); ALKALINE PHOSPHATASE 132 IU/L (42-121); ANION GAP 9 (5-13); ASPARTATE AMINO TRANSFERASE 16 IU/L (15-46); BILIRUBIN,INDIRECT 0.3 mg/dl (0-1.1); BILIRUBIN,TOTAL 0.3 mg/dl (0.2-1.3); BLOOD UREA NITROGEN 5 mg/dl (7-20); CALCIUM 9.1 mg/dl (8.4-10.2); CARBON DIOXIDE 31 mmol/L (21-31); CHLORIDE 100 mmol/L (97-110); Estimated GFR > 60 mL/min (>60); GLUCOSE 195 mg/dl (70-220); POTASSIUM 4.2 mmol/L (3.5-5.1); SODIUM 140 mmol/L (135-144); TOTAL PROTEIN 6.3 g/dl (6.1-8.1)
[2018-03-15] MEDS: DOCUSATE SODIUM 100 MG CAP PO (08:37)
[2018-03-15] MEDS: LOSARTAN 50 MG TAB PO (08:37)
[2018-03-15] MEDS: BISACODYL (EC) 5 MG TAB PO (08:37)
[2018-03-15] MEDS: LUBIPROSTONE 8 MCG CAPSULE PO (08:37)
[2018-03-15] MEDS: OXYCODONE/ACETAMINOPHEN (10/325) TAB PO ×3 (11:38→21:52)
[2018-03-15] MEDS: METOPROLOL (XL) 25 MG TAB PO (20:29)
[2018-03-15] MEDS: EZETIMIBE 10 MG TAB PO (21:43)
[2018-03-16] MEDS: LEVOFLOXACIN 500 MG TAB PO (05:45)
[2018-03-16] MEDS: PANTOPRAZOLE (EC) 40 MG TAB PO (05:45)
[2018-03-16] MEDS: LOSARTAN 50 MG TAB PO (08:09)
[2018-03-16] MEDS: ENOXAPARIN 40 MG/0.4 ML SYG SC (08:12)
[2018-03-16] MEDS: INSULIN ASPART [NOVOLOG] 3 ML PEN SC ×4 (08:12→21:14)
[2018-03-16] MEDS: HYDROmorphONE 1 MG/ML SYG IV ×3 (08:25→22:48)
[2018-03-16] MEDS: ACETAMINOPHEN 325 MG TAB PO (14:56)
[2018-03-16] MEDS: CEFEPIME 1GM/50 ML (PMX) 50 ML IVPB (21:09)
[2018-03-16] MEDS: METOPROLOL (XL) 25 MG TAB PO (21:09)
[2018-03-16] MEDS: OXYCODONE/ACETAMINOPHEN (10/325) TAB PO (21:10)
[2018-03-16] MEDS: EZETIMIBE 10 MG TAB PO ×2 (22:43→23:07)
[2018-03-16 22:45] LABS: ADD UMIC YES; UR ASCORBIC ACID NEGATIVE (NEGATIVE); UR BILIRUBIN (Dip) NEGATIVE (NEGATIVE); UR BLOOD (Dip) 1+ mg/dL (NEGATIVE); UR CLARITY CLEAR (CLEAR); UR COLOR STRAW (YELLOW); UR GLUCOSE (Dip) NEGATIVE (NEGATIVE); UR KETONES (Dip) NEGATIVE (NEGATIVE); UR LEUKOCYTE ESTERASE (Dip) TRACE Leu/ul (NEGATIVE); UR NITRITE (Dip) NEGATIVE (NEGATIVE); UR RBC 0 /HPF (0-5); UR SPECIFIC GRAVITY (Dip) 1.004 (1.003-1.030); UR TOTAL PROTEIN (Dip) NEGATIVE (NEGATIVE); UR UROBILINOGEN (Dip) NEGATIVE (NEGATIVE); UR WBC 3 /HPF (0-5)
[2018-03-17] MEDS: HYDROmorphONE 1 MG/ML SYG IV ×2 (02:00→13:08)
[2018-03-17 06:09] LABS: ADD MAN DIFF? NO
[2018-03-17 06:11] LABS: WHITE BLOOD COUNT 9.8 10^3/ul (4.8-10.8)
[2018-03-17 06:11] LABS: BASOPHIL # 0.1 10^3/ul (0.0-0.1); BASOPHILS % 0.6 % (0.0-2.0); EOSINOPHILS # 0.5 10^3/ul (0.0-0.5); EOSINOPHILS % 5.4 % (0.0-7.0); HEMATOCRIT 33.5 % (37.0-47.0); HEMOGLOBIN 10.5 g/dl (12.0-16.0); LYMPHOCYTES # 1.9 10^3/ul (0.8-2.9); LYMPHOCYTES % 19.7 % (15.0-51.0); MEAN CORPUSCULAR HEMOGLOBIN 24.4 pg (29.0-33.0); MEAN CORPUSCULAR HGB CONC 31.3 g/dl (32.0-37.0); MEAN CORPUSCULAR VOLUME 77.7 fl (82.0-101.0); MEAN PLATELET VOLUME 9.6 fl (7.4-10.4); MONOCYTE # 0.9 10^3/ul (0.3-0.9); MONOCYTES % 9.2 % (0.0-11.0); NEUTROPHIL # 6.4 10^3/ul (1.6-7.5); NEUTROPHILS % 64.7 % (39.0-77.0); PLATELET COUNT 382 10^3/UL (140-415); RED BLOOD COUNT 4.31 10^6/ul (4.20-5.40); RED CELL DISTRIBUTION WIDTH 14.6 % (11.5-14.5)
[2018-03-17] MEDS: PANTOPRAZOLE (EC) 40 MG TAB PO (06:18)
[2018-03-17 06:38] LABS: PHOSPHORUS 5.1 mg/dl (2.5-4.9)
[2018-03-17 06:38] LABS: MAGNESIUM 1.6 mg/dl (1.7-2.5)
[2018-03-17 06:39] LABS: ANION GAP 9 (5-13); BLOOD UREA NITROGEN 10 mg/dl (7-20); CALCIUM 9.7 mg/dl (8.4-10.2); CARBON DIOXIDE 31 mmol/L (21-31); CHLORIDE 100 mmol/L (97-110); CREATININE 0.59 mg/dl (0.44-1.00); Estimated GFR > 60 mL/min (>60); GLUCOSE 206 mg/dl (70-220); POTASSIUM 4.6 mmol/L (3.5-5.1); SODIUM 140 mmol/L (135-144)
[2018-03-17] MEDS: INSULIN ASPART [NOVOLOG] 3 ML PEN SC ×4 (07:58→20:24)
[2018-03-17] MEDS: CEFEPIME 1GM/50 ML (PMX) 50 ML IVPB ×2 (08:33→20:25)
[2018-03-17] MEDS: LOSARTAN 50 MG TAB PO ×2 (08:33→20:27)
[2018-03-17] MEDS: ENOXAPARIN 40 MG/0.4 ML SYG SC (08:42)
[2018-03-17] MEDS: OXYCODONE/ACETAMINOPHEN (10/325) TAB PO ×2 (14:48→20:25)
[2018-03-17] MEDS: MAGNESIUM CITRATE 300 ML BTL PO (16:23)
[2018-03-17] MEDS: MAGNESIUM SULFATE 2 GM/50 ML 50 ML IVPB (20:26)
[2018-03-17] MEDS: METOPROLOL (XL) 25 MG TAB PO (20:27)
[2018-03-17] MEDS: EZETIMIBE 10 MG TAB PO (20:28)
[2018-03-18] MEDS: HYDROmorphONE 0.5 MG/0.5 ML SYG IV (01:11)
[2018-03-18] MEDS: PANTOPRAZOLE (EC) 40 MG TAB PO (05:53)
[2018-03-18 06:56] LABS: MAGNESIUM 2.1 mg/dl (1.7-2.5)
[2018-03-18] MEDS: INSULIN ASPART [NOVOLOG] 3 ML PEN SC ×4 (07:57→21:08)
[2018-03-18] MEDS: CEFEPIME 1GM/50 ML (PMX) 50 ML IVPB ×2 (08:39→21:02)
[2018-03-18] MEDS: PEG/ELECTROLYTES 4L BTL PO (08:39)
[2018-03-18] MEDS: LOSARTAN 50 MG TAB PO ×2 (08:40→21:00)
[2018-03-18] MEDS: ENOXAPARIN 40 MG/0.4 ML SYG SC (08:44)
[2018-03-18] MEDS: OXYCODONE/ACETAMINOPHEN (10/325) TAB PO ×3 (08:49→21:15)
[2018-03-18 17:13] LABS: INR 1.05; PROTIME 13.8 Sec (11.9-14.9); PT RATIO 1.1
[2018-03-18 17:14] LABS: PARTIAL THROMBOPLASTIN TIME 41.5 Sec (23.0-35.0)
[2018-03-18] MEDS: EZETIMIBE 10 MG TAB PO ×2 (21:00→22:06)
[2018-03-18] MEDS: METOPROLOL (XL) 50 MG TAB PO (21:01)
[2018-03-19] MEDS: D5W-0.45 NACL + KCL 20 MEQ 1,000 ML IV ×3 (00:39→14:24)
[2018-03-19] MEDS: PANTOPRAZOLE (EC) 40 MG TAB PO (04:49)
[2018-03-19] MEDS: HYDROmorphONE 0.5 MG/0.5 ML SYG IV (05:26)
[2018-03-19 06:14] LABS: ADD MAN DIFF? NO
[2018-03-19 06:27] LABS: WHITE BLOOD COUNT 8.6 10^3/ul (4.8-10.8)
[2018-03-19 06:27] LABS: BASOPHIL # 0.1 10^3/ul (0.0-0.1); BASOPHILS % 0.6 % (0.0-2.0); EOSINOPHILS # 0.5 10^3/ul (0.0-0.5); EOSINOPHILS % 5.2 % (0.0-7.0); HEMATOCRIT 33.7 % (37.0-47.0); HEMOGLOBIN 10.8 g/dl (12.0-16.0); LYMPHOCYTES # 1.8 10^3/ul (0.8-2.9); LYMPHOCYTES % 21.2 % (15.0-51.0); MEAN CORPUSCULAR HEMOGLOBIN 24.7 pg (29.0-33.0); MEAN CORPUSCULAR VOLUME 76.9 fl (82.0-101.0); MEAN PLATELET VOLUME 9.6 fl (7.4-10.4); MONOCYTE # 0.8 10^3/ul (0.3-0.9); NEUTROPHIL # 5.5 10^3/ul (1.6-7.5); NEUTROPHILS % 63.7 % (39.0-77.0); PLATELET COUNT 395 10^3/UL (140-415); RED BLOOD COUNT 4.38 10^6/ul (4.20-5.40); RED CELL DISTRIBUTION WIDTH 14.5 % (11.5-14.5)
[2018-03-19 06:54] LABS: MAGNESIUM 1.7 mg/dl (1.7-2.5)
[2018-03-19 06:55] LABS: ANION GAP 9 (5-13); BLOOD UREA NITROGEN 7 mg/dl (7-20); CALCIUM 9.4 mg/dl (8.4-10.2); CARBON DIOXIDE 32 mmol/L (21-31); CHLORIDE 95 mmol/L (97-110); CREATININE 0.51 mg/dl (0.44-1.00); Estimated GFR > 60 mL/min (>60); GLUCOSE 188 mg/dl (70-220); SODIUM 136 mmol/L (135-144)
[2018-03-19] MEDS ORDERED: SEVOFLURANE 15 MIN (07:00)
[2018-03-19] MEDS: CEFEPIME 1GM/50 ML (PMX) 50 ML IVPB ×2 (07:57→20:22)
[2018-03-19] MEDS: hydrALAzine 20 MG INJ IV (07:58)
[2018-03-19] MEDS: LOSARTAN 50 MG TAB PO ×2 (08:00→20:22)
[2018-03-19] MEDS: INSULIN ASPART [NOVOLOG] 3 ML PEN SC ×4 (08:08→20:26)
[2018-03-19] MEDS ORDERED: PROPOFOL 20 ML (09:12)
[2018-03-19] MEDS ORDERED: SUCCINYLCHOLINE CHLORIDE 100 MG/5 ML SYG IV (09:12)
[2018-03-19] MEDS ORDERED: GLYCOPYRROLATE 0.4 MG INJ ×2 (09:12→10:53)
[2018-03-19] MEDS ORDERED: LIDOCAINE 2% (SDV) 5 ML INJ (09:12)
[2018-03-19] MEDS ORDERED: MEPERIDINE 100 MG INJ (09:12)
[2018-03-19] MEDS ORDERED: ROCURONIUM 50 MG INJ (09:12)
[2018-03-19] MEDS ORDERED: NEOSTIGMINE 3 MG/3 ML SYRINGE ×2 (09:12→10:53)
[2018-03-19] MEDS ORDERED: ONDANSETRON 4 MG INJ (09:28)
[2018-03-19] MEDS ORDERED: METOCLOPRAMIDE 10 MG INJ (09:28)
[2018-03-19] MEDS ORDERED: EPHEDrine SULFATE 50 MG/5 ML SYG IV (09:30)
[2018-03-19] MEDS ORDERED: MIDAZOLAM 1 MG/ML 2 ML INJ IV (09:30)
[2018-03-19] MEDS ORDERED: METOCLOPRAMIDE 10 MG INJ IV (09:30)
[2018-03-19] MEDS ORDERED: ONDANSETRON 4 MG INJ IV (09:30)
[2018-03-19] MEDS ORDERED: hydrALAzine 20 MG INJ IV (09:30)
[2018-03-19] MEDS ORDERED: LABETALOL HCL 20MG INJ IV (09:30)
[2018-03-19] MEDS ORDERED: DIPHENHYDRAMINE 50 MG INJ IV (09:30)
[2018-03-19] MEDS ORDERED: FENTAnyl 50 MCG/ML VIAL IV ×3 (09:30)
[2018-03-19] MEDS ORDERED: MEPERIDINE 25 MG INJ IV (09:30)
[2018-03-19] MEDS ORDERED: CEFAZOLIN 1 GM INJ (10:13)
[2018-03-19] MEDS ORDERED: BUPIVACAINE 0.25% (MPF) 30 ML INJ (11:14)
[2018-03-19] MEDS ORDERED: NALOXONE (0.4 MG/ML) INJ IV (12:00)
[2018-03-19 18:44] LABS: ADD UMIC YES; UR AMORPHOUS CRYSTAL MODERATE /HPF (NONE SEEN); UR ASCORBIC ACID NEGATIVE (NEGATIVE); UR BACTERIA FEW /HPF (NONE SEEN); UR BILIRUBIN (Dip) NEGATIVE (NEGATIVE); UR BLOOD (Dip) 1+ mg/dL (NEGATIVE); UR CLARITY SLIGHTLY CLOUDY (CLEAR); UR COLOR YELLOW (YELLOW); UR GLUCOSE (Dip) NEGATIVE (NEGATIVE); UR KETONES (Dip) TRACE mg/dL (NEGATIVE); UR LEUKOCYTE ESTERASE (Dip) NEGATIVE Leu/ul (NEGATIVE); UR MUCUS FEW /HPF (NONE SEEN); UR NITRITE (Dip) NEGATIVE (NEGATIVE); UR RBC 44 /HPF (0-5); UR SPECIFIC GRAVITY (Dip) 1.016 (1.003-1.030); UR TOTAL PROTEIN (Dip) NEGATIVE (NEGATIVE); UR UROBILINOGEN (Dip) NEGATIVE (NEGATIVE); UR WBC 6 /HPF (0-5)
[2018-03-19] MEDS: METOPROLOL (XL) 50 MG TAB PO (20:22)
[2018-03-19] MEDS: EZETIMIBE 10 MG TAB PO (21:00)
[2018-03-20] MEDS: FENTAnyl 2MCG/ML-ROPIV 0.2% 100 ML BAG EPI ×3 (00:13→21:51)
[2018-03-20 05:16] LABS: WHITE BLOOD COUNT 8.5 10^3/ul (4.8-10.8)
[2018-03-20 05:16] LABS: ADD MAN DIFF? NO; BASOPHILS % 0.2 % (0.0-2.0); EOSINOPHILS # 0.1 10^3/ul (0.0-0.5); EOSINOPHILS % 1.5 % (0.0-7.0); HEMATOCRIT 30.5 % (37.0-47.0); HEMOGLOBIN 9.6 g/dl (12.0-16.0); LYMPHOCYTES # 1.7 10^3/ul (0.8-2.9); LYMPHOCYTES % 19.7 % (15.0-51.0); MEAN CORPUSCULAR HEMOGLOBIN 24.5 pg (29.0-33.0); MEAN CORPUSCULAR HGB CONC 31.5 g/dl (32.0-37.0); MEAN CORPUSCULAR VOLUME 77.8 fl (82.0-101.0); MEAN PLATELET VOLUME 9.5 fl (7.4-10.4); MONOCYTE # 0.8 10^3/ul (0.3-0.9); MONOCYTES % 9.3 % (0.0-11.0); NEUTROPHIL # 5.8 10^3/ul (1.6-7.5); NEUTROPHILS % 68.9 % (39.0-77.0); PLATELET COUNT 363 10^3/UL (140-415); RED BLOOD COUNT 3.92 10^6/ul (4.20-5.40); RED CELL DISTRIBUTION WIDTH 14.6 % (11.5-14.5)
[2018-03-20] MEDS: PANTOPRAZOLE (EC) 40 MG TAB PO (05:23)
[2018-03-20 05:38] LABS: ANION GAP 6 (5-13); BLOOD UREA NITROGEN 6 mg/dl (7-20); CARBON DIOXIDE 30 mmol/L (21-31); CHLORIDE 99 mmol/L (97-110); CREATININE 0.52 mg/dl (0.44-1.00); Estimated GFR > 60 mL/min (>60); GLUCOSE 182 mg/dl (70-220); SODIUM 135 mmol/L (135-144)
[2018-03-20 05:40] LABS: MAGNESIUM 1.5 mg/dl (1.7-2.5)
[2018-03-20 05:40] LABS: PHOSPHORUS 4.5 mg/dl (2.5-4.9)
[2018-03-20] MEDS: D5W-0.45 NACL + KCL 20 MEQ 1,000 ML IV (07:22)
[2018-03-20 08:07] LABS: POTASSIUM 4.3 mmol/L (3.5-5.1)
[2018-03-20] MEDS: LOSARTAN 50 MG TAB PO ×2 (08:58→21:13)
[2018-03-20] MEDS: INSULIN ASPART [NOVOLOG] 3 ML PEN SC ×4 (08:58→21:00)
[2018-03-20] MEDS: CEFEPIME 1GM/50 ML (PMX) 50 ML IVPB ×2 (08:59→21:50)
[2018-03-20] MEDS: SOD CHLORIDE 0.45% 1,000 ML IV (10:57)
[2018-03-20] MEDS: MAGNESIUM SULFATE 4 GM/100 ML 100 ML IVPB (16:41)
[2018-03-20] MEDS: METOPROLOL (XL) 50 MG TAB PO (21:14)
[2018-03-20] MEDS: EZETIMIBE 10 MG TAB PO (21:14)
[2018-03-21] MEDS: SOD CHLORIDE 0.45% 1,000 ML IV ×2 (03:10→06:55)
[2018-03-21] MEDS: PANTOPRAZOLE (EC) 40 MG TAB PO (06:52)
[2018-03-21 07:12] LABS: ANION GAP 8 (5-13); BLOOD UREA NITROGEN 6 mg/dl (7-20); CALCIUM 8.7 mg/dl (8.4-10.2); CARBON DIOXIDE 30 mmol/L (21-31); CHLORIDE 99 mmol/L (97-110); CREATININE 0.55 mg/dl (0.44-1.00); Estimated GFR > 60 mL/min (>60); GLUCOSE 139 mg/dl (70-220); POTASSIUM 4.3 mmol/L (3.5-5.1); SODIUM 137 mmol/L (135-144)
[2018-03-21 07:23] LABS: PHOSPHORUS 4.2 mg/dl (2.5-4.9)
[2018-03-21] MEDS: FENTAnyl 2MCG/ML-ROPIV 0.2% 100 ML BAG EPI ×2 (07:39→21:00)
[2018-03-21] MEDS: CEFEPIME 1GM/50 ML (PMX) 50 ML IVPB ×2 (08:39→16:27)
[2018-03-21] MEDS: LOSARTAN 50 MG TAB PO ×2 (08:40→21:20)
[2018-03-21] MEDS: INSULIN ASPART [NOVOLOG] 3 ML PEN SC ×4 (09:00→21:22)
[2018-03-21] MEDS: HYDROmorphONE 0.5 MG/0.5 ML SYG IV (14:59)
[2018-03-21] MEDS: HYDROmorphONE 0.2 MG/ML PCA IV (16:20)
[2018-03-21] MEDS: ONDANSETRON 4 MG INJ IV (19:33)
[2018-03-21] MEDS: EZETIMIBE 10 MG TAB PO (21:19)
[2018-03-21] MEDS: METOPROLOL (XL) 50 MG TAB PO (21:20)
[2018-03-22] MEDS: CEFEPIME 1GM/50 ML (PMX) 50 ML IVPB (00:11)
[2018-03-22] MEDS: SOD CHLORIDE 0.45% 1,000 ML IV (00:11)
[2018-03-22 05:25] LABS: ADD MAN DIFF? NO
[2018-03-22 05:34] LABS: WHITE BLOOD COUNT 7.4 10^3/ul (4.8-10.8)
[2018-03-22 05:34] LABS: BASOPHILS % 0.5 % (0.0-2.0); EOSINOPHILS # 0.3 10^3/ul (0.0-0.5); EOSINOPHILS % 4.2 % (0.0-7.0); HEMATOCRIT 29.5 % (37.0-47.0); HEMOGLOBIN 9.1 g/dl (12.0-16.0); LYMPHOCYTES # 1.6 10^3/ul (0.8-2.9); LYMPHOCYTES % 21.3 % (15.0-51.0); MEAN CORPUSCULAR HEMOGLOBIN 24.3 pg (29.0-33.0); MEAN CORPUSCULAR HGB CONC 30.8 g/dl (32.0-37.0); MEAN CORPUSCULAR VOLUME 78.7 fl (82.0-101.0); MEAN PLATELET VOLUME 9.5 fl (7.4-10.4); MONOCYTE # 0.7 10^3/ul (0.3-0.9); MONOCYTES % 8.8 % (0.0-11.0); NEUTROPHIL # 4.8 10^3/ul (1.6-7.5); NEUTROPHILS % 64.8 % (39.0-77.0); PLATELET COUNT 372 10^3/UL (140-415); RED BLOOD COUNT 3.75 10^6/ul (4.20-5.40); RED CELL DISTRIBUTION WIDTH 14.6 % (11.5-14.5)
[2018-03-22] MEDS: PANTOPRAZOLE (EC) 40 MG TAB PO (06:00)
[2018-03-22] MEDS: FENTAnyl 2MCG/ML-ROPIV 0.2% 100 ML BAG EPI ×2 (06:56→16:50)
[2018-03-22] MEDS: LOSARTAN 50 MG TAB PO ×2 (08:37→20:27)
[2018-03-22] MEDS ORDERED: ENOXAPARIN 40 MG/0.4 ML SYG SC (09:00)
[2018-03-22] MEDS: INSULIN ASPART [NOVOLOG] 3 ML PEN SC ×4 (09:04→20:39)
[2018-03-22] MEDS ORDERED: CEFEPIME 1GM/50 ML (PMX) 50 ML IVPB (11:00)
[2018-03-22] MEDS: HYDROmorphONE 0.5 MG/0.5 ML SYG IV ×3 (12:20→19:29)
[2018-03-22] MEDS: DOCUSATE SODIUM 100 MG CAP PO (12:26)
[2018-03-22] MEDS: EZETIMIBE 10 MG TAB PO (20:26)
[2018-03-22] MEDS: METOPROLOL (XL) 50 MG TAB PO (20:27)
[2018-03-23] MEDS: FENTAnyl 2MCG/ML-ROPIV 0.2% 100 ML BAG EPI ×2 (02:59→12:35)
[2018-03-23 05:30] LABS: ADD MAN DIFF? NO
[2018-03-23 05:39] LABS: BASOPHIL # 0.1 10^3/ul (0.0-0.1); BASOPHILS % 0.8 % (0.0-2.0); EOSINOPHILS # 0.5 10^3/ul (0.0-0.5); EOSINOPHILS % 7.3 % (0.0-7.0); HEMATOCRIT 28.7 % (37.0-47.0); HEMOGLOBIN 8.9 g/dl (12.0-16.0); LYMPHOCYTES # 1.7 10^3/ul (0.8-2.9); LYMPHOCYTES % 25.2 % (15.0-51.0); MEAN CORPUSCULAR HEMOGLOBIN 24.1 pg (29.0-33.0); MEAN CORPUSCULAR VOLUME 77.6 fl (82.0-101.0); MEAN PLATELET VOLUME 9.9 fl (7.4-10.4); MONOCYTE # 0.5 10^3/ul (0.3-0.9); NEUTROPHIL # 3.9 10^3/ul (1.6-7.5); NEUTROPHILS % 59.2 % (39.0-77.0); PLATELET COUNT 413 10^3/UL (140-415); RED CELL DISTRIBUTION WIDTH 14.6 % (11.5-14.5)
[2018-03-23 05:39] LABS: WHITE BLOOD COUNT 6.6 10^3/ul (4.8-10.8)
[2018-03-23 05:57] LABS: PHOSPHORUS 3.7 mg/dl (2.5-4.9)
[2018-03-23 05:57] LABS: MAGNESIUM 1.6 mg/dl (1.7-2.5)
[2018-03-23] MEDS: PANTOPRAZOLE (EC) 40 MG TAB PO (06:22)
[2018-03-23 06:29] LABS: ANION GAP 8 (5-13); BLOOD UREA NITROGEN 9 mg/dl (7-20); CALCIUM 8.9 mg/dl (8.4-10.2); CARBON DIOXIDE 32 mmol/L (21-31); CHLORIDE 98 mmol/L (97-110); CREATININE 0.48 mg/dl (0.44-1.00); Estimated GFR > 60 mL/min (>60); GLUCOSE 165 mg/dl (70-220); POTASSIUM 4.4 mmol/L (3.5-5.1); SODIUM 138 mmol/L (135-144)
[2018-03-23] MEDS: LOSARTAN 50 MG TAB PO ×2 (08:45→21:17)
[2018-03-23] MEDS: INSULIN ASPART [NOVOLOG] 3 ML PEN SC ×4 (08:50→21:23)
[2018-03-23] MEDS: HYDROmorphONE 0.5 MG/0.5 ML SYG IV ×2 (09:19→13:00)
[2018-03-23] MEDS: MAGNESIUM SULFATE 3 GM in DEXTROSE 5% 100 ML IVPB (14:49)
[2018-03-23] MEDS: HYDROmorphONE 0.2 MG/ML PCA IV (18:06)
[2018-03-23] MEDS: KETOROLAC 30 MG INJ IV (18:10)
[2018-03-23] MEDS: METOPROLOL (XL) 50 MG TAB PO (21:18)
[2018-03-23] MEDS: EZETIMIBE 10 MG TAB PO (21:18)
[2018-03-24] MEDS: KETOROLAC 30 MG INJ IV ×4 (00:17→17:53)
[2018-03-24] MEDS: PANTOPRAZOLE (EC) 40 MG TAB PO (06:45)
[2018-03-24] MEDS: LOSARTAN 50 MG TAB PO ×2 (08:30→20:13)
[2018-03-24] MEDS: INSULIN ASPART [NOVOLOG] 3 ML PEN SC ×4 (08:31→20:17)
[2018-03-24] MEDS: LINAGLIPTIN 5 MG TABLET PO (12:47)
[2018-03-24] MEDS: EZETIMIBE 10 MG TAB PO (20:12)
[2018-03-24] MEDS: METOPROLOL (XL) 50 MG TAB PO (20:14)
[2018-03-24] MEDS: HYDROmorphONE 0.2 MG/ML PCA IV (22:03)
[2018-03-25] MEDS: KETOROLAC 30 MG INJ IV ×3 (01:16→12:00)
[2018-03-25 05:08] LABS: ADD MAN DIFF? NO
[2018-03-25 05:13] LABS: BASOPHIL # 0.1 10^3/ul (0.0-0.1); BASOPHILS % 0.8 % (0.0-2.0); EOSINOPHILS # 0.7 10^3/ul (0.0-0.5); EOSINOPHILS % 11.1 % (0.0-7.0); HEMATOCRIT 30.1 % (37.0-47.0); HEMOGLOBIN 9.3 g/dl (12.0-16.0); LYMPHOCYTES # 1.7 10^3/ul (0.8-2.9); LYMPHOCYTES % 28.1 % (15.0-51.0); MEAN CORPUSCULAR HEMOGLOBIN 24.4 pg (29.0-33.0); MEAN CORPUSCULAR HGB CONC 30.9 g/dl (32.0-37.0); MEAN PLATELET VOLUME 9.3 fl (7.4-10.4); MONOCYTE # 0.5 10^3/ul (0.3-0.9); MONOCYTES % 8.2 % (0.0-11.0); NEUTROPHIL # 3.2 10^3/ul (1.6-7.5); NEUTROPHILS % 51.3 % (39.0-77.0); PLATELET COUNT 441 10^3/UL (140-415); RED BLOOD COUNT 3.81 10^6/ul (4.20-5.40); RED CELL DISTRIBUTION WIDTH 14.8 % (11.5-14.5)
[2018-03-25 05:13] LABS: WHITE BLOOD COUNT 6.2 10^3/ul (4.8-10.8)
[2018-03-25] MEDS: PANTOPRAZOLE (EC) 40 MG TAB PO (05:21)
[2018-03-25 05:41] LABS: ANION GAP 8 (5-13); BLOOD UREA NITROGEN 11 mg/dl (7-20); CALCIUM 8.8 mg/dl (8.4-10.2); CARBON DIOXIDE 30 mmol/L (21-31); CHLORIDE 101 mmol/L (97-110); CREATININE 0.53 mg/dl (0.44-1.00); Estimated GFR > 60 mL/min (>60); GLUCOSE 167 mg/dl (70-220); POTASSIUM 4.3 mmol/L (3.5-5.1); SODIUM 139 mmol/L (135-144)
[2018-03-25] MEDS: INSULIN ASPART [NOVOLOG] 3 ML PEN SC ×4 (08:40→20:46)
[2018-03-25] MEDS: LINAGLIPTIN 5 MG TABLET PO (08:40)
[2018-03-25] MEDS: LOSARTAN 50 MG TAB PO ×2 (08:41→20:49)
[2018-03-25] MEDS: OXYCODONE/ACETAMINOPHEN (5/325) TAB PO ×3 (10:12→22:08)
[2018-03-25] MEDS: AMLODIPINE 5 MG TAB PO (11:30)
[2018-03-25] MEDS: EZETIMIBE 10 MG TAB PO (20:47)
[2018-03-25] MEDS: METOPROLOL (XL) 50 MG TAB PO (20:48)
[2018-03-26] MEDS: PANTOPRAZOLE (EC) 40 MG TAB PO (05:17)
[2018-03-26 05:30] LABS: ADD MAN DIFF? NO
[2018-03-26 05:38] LABS: WHITE BLOOD COUNT 7.3 10^3/ul (4.8-10.8)
[2018-03-26 05:38] LABS: BASOPHILS % 0.5 % (0.0-2.0); EOSINOPHILS # 0.8 10^3/ul (0.0-0.5); EOSINOPHILS % 10.6 % (0.0-7.0); HEMATOCRIT 31.1 % (37.0-47.0); HEMOGLOBIN 9.5 g/dl (12.0-16.0); LYMPHOCYTES # 1.8 10^3/ul (0.8-2.9); MEAN CORPUSCULAR HEMOGLOBIN 23.8 pg (29.0-33.0); MEAN CORPUSCULAR HGB CONC 30.5 g/dl (32.0-37.0); MEAN CORPUSCULAR VOLUME 77.9 fl (82.0-101.0); MEAN PLATELET VOLUME 9.2 fl (7.4-10.4); MONOCYTE # 0.6 10^3/ul (0.3-0.9); MONOCYTES % 8.6 % (0.0-11.0); NEUTROPHILS % 55.5 % (39.0-77.0); PLATELET COUNT 474 10^3/UL (140-415); RED BLOOD COUNT 3.99 10^6/ul (4.20-5.40); RED CELL DISTRIBUTION WIDTH 15.1 % (11.5-14.5)
[2018-03-26] MEDS: OXYCODONE/ACETAMINOPHEN (5/325) TAB PO ×2 (08:44→12:45)
[2018-03-26] MEDS: LINAGLIPTIN 5 MG TABLET PO (08:44)
[2018-03-26] MEDS: AMLODIPINE 5 MG TAB PO (08:46)
[2018-03-26] MEDS: LOSARTAN 50 MG TAB PO (08:46)
[2018-03-26] MEDS: INSULIN ASPART [NOVOLOG] 3 ML PEN SC ×2 (08:53→12:44)
== END 2018-03-26 14:15 | disposition home or self-care (01) | DRG 827 ==
LOC: 2NE 20:29 → MS1 03-19 12:44 → E/R 17:22
PROC: 0WBH0ZZ Excision of Retroperitoneum, Open Approach (ICD-10-PCS; principal; 2018-03-19 09:00)
DX: C48.0 Malignant neoplasm of retroperitoneum (principal); N39.0 Urinary tract infection, site not specified; R31.9 Hematuria, unspecified; E78.5 Hyperlipidemia, unspecified; Z79.82 Long term (current) use of aspirin; E11.65 Type 2 diabetes mellitus with hyperglycemia; E83.42 Hypomagnesemia; R50.9 Fever, unspecified; G89.18 Other acute postprocedural pain
CPT/HCPCS: 36415; 71045; 80048; 80053; 81001; 82962; 83690; 83735; 84100; 84484; 85025; 85576; 85610; 85730; 86850; 86900; 86901; 86920; 87040; 87081; 87086; 88309; 90686; 93005; 93306; 96374; 99285-25

== ENCOUNTER 2018-04-07 18:46 | Emergency (ER) | payer OTHER ==
[2018-04-07] MEDS: ONDANSETRON 4 MG INJ IV (23:15)
[2018-04-07] MEDS: HYDROmorphONE 2 MG/ML SYG IV (23:16)
[2018-04-07 23:20] LABS: ADD MAN DIFF? NO
[2018-04-07 23:26] LABS: BASOPHIL # 0.1 10^3/ul (0.0-0.1); BASOPHILS % 0.8 % (0.0-2.0); EOSINOPHILS # 0.4 10^3/ul (0.0-0.5); EOSINOPHILS % 3.8 % (0.0-7.0); HEMATOCRIT 36.4 % (37.0-47.0); HEMOGLOBIN 11.1 g/dl (12.0-16.0); LYMPHOCYTES % 17.8 % (15.0-51.0); MEAN CORPUSCULAR HEMOGLOBIN 23.8 pg (29.0-33.0); MEAN CORPUSCULAR HGB CONC 30.5 g/dl (32.0-37.0); MEAN CORPUSCULAR VOLUME 78.1 fl (82.0-101.0); MEAN PLATELET VOLUME 9.5 fl (7.4-10.4); MONOCYTE # 0.8 10^3/ul (0.3-0.9); MONOCYTES % 7.1 % (0.0-11.0); NEUTROPHIL # 7.9 10^3/ul (1.6-7.5); NEUTROPHILS % 70.1 % (39.0-77.0); PLATELET COUNT 451 10^3/UL (140-415); RED BLOOD COUNT 4.66 10^6/ul (4.20-5.40); RED CELL DISTRIBUTION WIDTH 15.2 % (11.5-14.5)
[2018-04-07 23:26] LABS: WHITE BLOOD COUNT 11.3 10^3/ul (4.8-10.8)
[2018-04-07 23:39] LABS: ADD UMIC YES; UR ASCORBIC ACID NEGATIVE (NEGATIVE); UR BACTERIA FEW /HPF (NONE SEEN); UR BILIRUBIN (Dip) NEGATIVE (NEGATIVE); UR BLOOD (Dip) 1+ mg/dL (NEGATIVE); UR CLARITY SLIGHTLY CLOUDY (CLEAR); UR COLOR YELLOW (YELLOW); UR GLUCOSE (Dip) NEGATIVE (NEGATIVE); UR KETONES (Dip) TRACE mg/dL (NEGATIVE); UR LEUKOCYTE ESTERASE (Dip) 3+ Leu/ul (NEGATIVE); UR MUCUS FEW /HPF (NONE SEEN); UR NITRITE (Dip) NEGATIVE (NEGATIVE); UR RBC 7 /HPF (0-5); UR SPECIFIC GRAVITY (Dip) 1.018 (1.003-1.030); UR SQUAMOUS EPITHELIAL CELL FEW /HPF (FEW); UR TOTAL PROTEIN (Dip) NEGATIVE (NEGATIVE); UR UROBILINOGEN (Dip) NEGATIVE (NEGATIVE); UR WBC 38 /HPF (0-5)
[2018-04-07 23:45] LABS: INR 0.93; PROTIME 12.6 Sec (11.9-14.9)
[2018-04-07 23:46] LABS: PARTIAL THROMBOPLASTIN TIME 37.2 Sec (23.0-35.0)
[2018-04-07 23:50] LABS: ANION GAP 11 (5-13); BLOOD UREA NITROGEN 13 mg/dl (7-20); CALCIUM 9.9 mg/dl (8.4-10.2); CARBON DIOXIDE 33 mmol/L (21-31); CHLORIDE 94 mmol/L (97-110); CREATININE 0.55 mg/dl (0.44-1.00); Estimated GFR > 60 mL/min (>60); GLUCOSE 190 mg/dl (70-220); POTASSIUM 4.4 mmol/L (3.5-5.1); SODIUM 138 mmol/L (135-144)
[2018-04-07 23:59] LABS: TROPONIN-I < 0.012 ng/ml (0.000-0.120)
[2018-04-08] MEDS: SOD CHLORIDE 0.9% 100 ML (00:12)
[2018-04-08] MEDS: IOHEXOL 300MG/ML 150 ML BTL (00:12)
== END 2018-04-08 01:09 | disposition home or self-care (01) ==
LOC: E/R 18:46
DX: C49.4 Malignant neoplasm of connective and soft tissue of abdomen (principal); E11.9 Type 2 diabetes mellitus without complications; I10 Essential (primary) hypertension; R10.32 Left lower quadrant pain; Z79.82 Long term (current) use of aspirin; Z79.84 Long term (current) use of oral hypoglycemic drugs; Z87.891 Personal history of nicotine dependence
CPT/HCPCS: 36415; 71045; 74177; 80048; 81001; 83605; 84484; 85025; 85610; 85730; 87040; 87086; 93005; 96374; 96375; 99285-25

== ENCOUNTER 2018-05-03 07:19 | Day surgery (SDC) | payer OTHER ==
[2018-05-03] MEDS ORDERED: HEPARIN 1000 UNITS/ML 10 ML INJ (08:56)
[2018-05-03] MEDS ORDERED: CEFAZOLIN 1 GM/50 ML (PMX) 50 ML IVPB (09:41)
[2018-05-03] MEDS: CEFAZOLIN 1 GM/50 ML (PMX) 50 ML IVPB (10:15)
[2018-05-03] MEDS: SOD CHLORIDE 0.9% 1,000 ML IV (10:15)
[2018-05-03] MEDS: LIDOCAINE 1%/EPI (1:100,000) (MDV) 20 ML (10:33)
[2018-05-03] MEDS: FENTAnyl 50 MCG/ML VIAL (10:33)
[2018-05-03] MEDS: DIPHENHYDRAMINE 50 MG INJ (10:35)
[2018-05-03] MEDS: POLYMYXIN/BACITRACIN 1L IRRIG IRR (11:48)
== END 2018-05-03 14:00 | disposition home or self-care (01) ==
LOC: SDS 07:19
DX: C49.4 Malignant neoplasm of connective and soft tissue of abdomen (principal)
CPT/HCPCS: 36561; 76942